=== PATIENT | female | born 1990 | race Caucasian/White ===

== ENCOUNTER 2023-02-21 18:49 | Emergency (ER) | payer OTHER, SELFPAY ==
--- NOTE | ~2023-02-21 | CT_ITS ---
EXAMINATION: CT ABDOMEN AND PELVIS WITHOUT CONTRAST CLINICAL INFORMATION: Right-sided flank pain COMPARISON: 04/03/2020 TECHNIQUE: Multidetector volumetric imaging was performed from the superior aspect of the liver through the pubic symphysis. Sagittal and coronal reformatted images were obtained on the technologist's workstation. This CT examination was performed using dose optimization techniques as appropriate, variously including the following: *Automated exposure control *Adjustment of mA and/or kV according to patient size (this includes techniques or standardized protocols for targeted exams where dose is matched to indication/reason for exam; i.e. extremities or head) *Use of iterative reconstruction technique DLP: 384 mGy-cm FINDINGS: LUNG BASES: The visualized lung bases are unremarkable. LIVER, GALLBLADDER, AND BILIARY TREE: The liver is normal in size, shape, and attenuation. No focal hepatic lesion or biliary ductal dilatation is present. The gallbladder is unremarkable with no evidence of radiopaque gallstones, gallbladder wall thickening, or obvious pericholecystic inflammatory changes. PANCREAS: Unremarkable. SPLEEN: Unremarkable. ADRENAL GLANDS: Unremarkable. KIDNEYS AND URETERS: Multiple bilateral relatively small punctate 2 to 4 mm calculi bilaterally. On the right, there is hydronephrosis which is relatively marked down to the level of the distal ureter where there is a obstructing 2 mm calculus. No additional ureteral stone. Left-sided system decompressed. No perinephric collection. Right kidney is enlarged. BLADDER: Unremarkable. GASTROINTESTINAL TRACT: The small and large bowel are unremarkable. The appendix is unremarkable. ABDOMINAL WALL: No significant hernia is appreciated. LYMPH NODES: Normal. VASCULAR: Unremarkable. PELVIC VISCERA: Cholecystectomy fluid which is likely physiologic. Air within the vaginal fornix presumably iatrogenic. OSSEOUS STRUCTURES: Unremarkable. CT/CT abdomen pelvis wo IV con IMPRESSION: Obstructing 2 mm right distal ureteral calculus. Fleischner guidelines were followed.
[2023-02-21 19:43] VITALS: BP 139/80; PULSE 74; RESP 18; TEMP 36.9; O2SAT 99; BMI 23.8
--- NOTE | 2023-02-21 19:43 | ED.GENADULT ---
HPI - General Adult General Chief complaint: Abdominal Pain Stated complaint: Flank pain/vomiting Related Data Allergies Allergy/AdvReac Type Severity Reaction Status Date / Time Sulfa (Sulfonamide Allergy Intermediate UNKNOWN Unverified 06/25/20 19:41 Antibiotics) [SULFA (SULFONAMIDE ANTIBIOTICS)] Physical Exam ED Vital Signs: Vital Signs - 24 hr 02/21/23 19:43 Temperature 98.4 F Pulse Rate 74 Respiratory Rate 18 Blood Pressure 139/80 Pulse Oximetry 99 Oxygen Delivery Method Room Air BMI result Body Mass Index 23.8 Course Course Course Narrative: This is an RME: Additional HPI, ROS, PE not included below will be deferred to primary provider. [id number], hx of kidney stones, Factor II blood disorder, and depression, presenting to the emergency department with a complaint of right sided flank pain, nausea, vomiting, since last night. Pain starts in the right flank and radiates to the right after. +Chills, no known fevers. Patient has been unable to urinate since noon today. Unable to tolerate PO due to nausea and vomiting. Plan: labs, CT abd/pelvis w/o contrast, UA, zofran 4mg ODT, and tylenol PO ordered
[2023-02-21] MEDS: Ondansetron ODT 4 MG TAB.RAPDIS TRANSLINGU (19:51)
[2023-02-21] MEDS: Acetaminophen 325 MG TABLET 975 MG PO (19:51)
[2023-02-21 20:34] LABS: MANUAL DIFF FLAG NO
[2023-02-21 20:39] LABS: Appearance Urine Turbid; Color Urine Yellow; Glucose Urine UA Negative (Negative); Leukocyte Esterase Urine Moderate (2+) (Negative); Nitrite Urine Negative (Negative); PH 5.5 (5.0-9.0); Specific Gravity - Urine >= 1.030 (1.005-1.025); UMIC TRIGGER UACC YES; Urine Blood Small (1+) (Negative); Urine Ketones 15 mg/dL (Negative); Urine Protein Trace mg/dL (Neg-Trace)
[2023-02-21 20:41] LABS: Basophils Absolute Auto 0.1 X10*3/uL (0.0-0.2); Basophils Percent Auto 0.4 % (0-2); Eosinophils Absolute Auto 0.1 X10*3/uL (0.0-0.4); Eosinophils Percent Auto 0.7 % (0-4); Hematocrit 44.2 % (37.0-47.0); Hemoglobin 14.7 g/dl (12.0-16.0); Imm Gran Abs Auto 0.05 X10*3/uL (0.00-0.03); Imm Gran Pct Auto 0.3 % (0.0-0.4); Lymphocytes Absolute Auto 1.3 X10*3/uL (1.2-4.9); Lymphocytes Percent Auto 8.4 % (20-40); Mean Corpuscular HGB Conc 33.3 g/dl (31.0-35.0); Mean Corpuscular Hemoglobin 30.6 pg (27.0-33.0); Mean Corpuscular Volume 91.9 fL (80.0-98.0); Mean Platelet Volume 10.5 fL (9.4-12.3); Monocytes Absolute Auto 0.6 X10*3/uL (0.1-1.2); Monocytes Percent Auto 3.7 % (2-11); Neutrophils Absolute Auto 13.5 x10*3/uL (2.0-8.3); Neutrophils Percent Auto 86.5 % (45-73); Platelet Count 300 X10*3/uL (160-400); Red Blood Count 4.81 X10*6/uL (4.20-5.50); Red Cell Distribution Width 12.4 % (11.0-16.0); UPreg QC Valid YES; Urine Pregnancy NEGATIVE (NEGATIVE); White Blood Count 15.6 X10*3/uL (4.8-10.8)
[2023-02-21 20:52] LABS: Bacteria Urine 4+ (None Seen); RBC Urine >20 /HPF (0-2); Squamous Epithelial Cell Urine >20 /HPF (0-2); UACC Culture Trigger YES; WBC Urine 21-50 /HPF (0-5)
--- NOTE | 2023-02-21 20:52 | ED_ITS ---
HPI - Abdominal Pain General Chief Complaint: Abdominal Pain Stated Complaint: Flank pain/vomiting Time Seen by Provider: 02/21/23 20:40 Source: patient History of Present Illness HPI narrative: Patient with 2 days of right side abdominal pain radiating to right flank and right lower quadrant. Positive nausea and vomiting today. No fevers or chills. Similar pain in the past when she had a kidney stone. No other recent illnesses. She came to the emergency department today because she was unable to tolerate p.o. liquids the pain was getting worse. At times it is 10/10. Currently she rates it as moderate Related Data Previous Rx's Medication Instructions Recorded cefpodoxime 200 mg tablet 200 mg PO Q12H #14 tabs 02/21/23 ibuprofen 800 mg tablet 800 mg PO TID PRN pain #30 tabs 02/21/23 ondansetron 4 mg disintegrating 4 mg PO Q6H PRN nausea and 02/21/23 tablet vomiting #14 tabs oxycodone-acetaminophen 5 mg-325 1 tab PO TID PRN pain #10 tabs 02/21/23 mg tablet (Percocet) tamsulosin 0.4 mg capsule 0.4 mg PO DAILY #10 caps 02/21/23 Allergies Allergy/AdvReac Type Severity Reaction Status Date / Time Sulfa (Sulfonamide Allergy Intermediate UNKNOWN Verified 02/21/23 21:17 Antibiotics) [SULFA (SULFONAMIDE ANTIBIOTICS)] Review of Systems Comments: No fevers or chills or recent illness Comments: No chest pain Comments: No cough Gastrointestinal: Reports as per HPI Comments: No dysuria Comments: No skin changes PMFSH Social History Social History Use of substances other than those prescribed or required for medical reasons: No Advance Directives: No Advance Directives Information Provided: Yes Patient : No Physical Exam ED Vital Signs: Vital Signs - 24 hr 02/21/23 19:43 02/21/23 21:23 02/21/23 22:20 Temperature 98.4 F 98.0 F 97.7 F Pulse Rate 74 61 69 Respiratory Rate 18 16 12 Blood Pressure 139/80 112/75 91/63 Pulse Oximetry 99 98 99 Oxygen Delivery Method Room Air Room Air Room Air 02/21/23 22:41 Temperature Pulse Rate 70 Respiratory Rate Blood Pressure 106/67 Pulse Oximetry Oxygen Delivery Method BMI result Body Mass Index 23.8 Const Other: Awake and alert. No acute distress. Vital signs stable. Afebrile Resp Other: Clear and equal bilaterally Cardio Other: Regular rate rhythm without murmurs rubs or gallops GI Other: Soft, nondistended. Tenderness suprapubically, right lower, mid, and flank. Some guarding. No rebound. No referred pain. Skin Other: Warm pink and dry without rash Neuro Other: Grossly nonfocal neuro exam Medical Decision Making Medical Decision Making [facility] Narrative: Patient with abdominal pain and flank pain consistent with kidney stone. Other considerations would be pyelonephritis. Appendicitis. Gastroenteritis less likely. IV fluids IV Toradol IV ondansetron Await labs and CT scan. 20:55. White count is 15.6. Chemistries are pending. Urinalysis shows moderate leuk goes site esterase. Micro shows greater than 20 red cells and 21-50 white cells. Will treat with antibiotics. 21:56. CT scan shows obstructing 2 mm distal right ureteral calculus. Re-evaluation shows patient is feeling much better. She denies nausea. She states the pain is minimal. I discussed options of hospitalization in light of the above findings. Versus discharge home on p.o. meds if tolerated. Will attempt p.o. challenge 1st. If she tolerates this she would prefer discharge home. She understands to return immediately if she develops high fevers, nausea with inability to take her antibiotics or stay hydrated. Lab Data 02/21/23 20:26 02/21/23 20:26 Labs: Lab Results 02/21/23 02/21/23 02/21/23 Range/Units 20:26 20:26 20:26 WBC 15.6 H (4.8-10.8) X10*3/uL RBC 4.81 (4.20-5.50) X10*6/uL Hgb 14.7 (12.0-16.0) g/dl Hct 44.2 (37.0-47.0) % MCV 91.9 (80.0-98.0) fL MCH 30.6 (27.0-33.0) pg MCHC 33.3 (31.0-35.0) g/dl RDW 12.4 (11.0-16.0) % Plt Count 300 (160-400) X10*3/uL MPV 10.5 (9.4-12.3) fL Immature Gran % (Auto) 0.3 (0.0-0.4) % Neut % (Auto) 86.5 H (45-73) % Lymph % (Auto) 8.4 L (20-40) % [place] % (Auto) 3.7 (2-11) % Eos % (Auto) 0.7 (0-4) % Baso % (Auto) 0.4 (0-2) % Lymph # (Auto) 1.3 (1.2-4.9) X10*3/uL [place] # (Auto) 0.6 (0.1-1.2) X10*3/uL Eos # (Auto) 0.1 (0.0-0.4) X10*3/uL Baso # (Auto) 0.1 (0.0-0.2) X10*3/uL Abs Immat Gran (auto) 0.05 H (0.00-0.03) X10*3/uL Absolute Neuts (auto) 13.5 H (2.0-8.3) x10*3/uL Absolute Nucleated RBC 0.000 (0.0-0.012) X10*3/uL Nucleated RBC % (auto) 0.0 (0.0-0.2) /100WBC Sodium 140 (135-145) mmol/L Potassium 4.1 (3.3-5.1) mmol/L Chloride 106 (96-108) mmol/L Carbon Dioxide 24 (22-29) mmol/L Anion Gap 14 (12-20) BUN 11 (9-16) mg/dL Creatinine 0.84 (0.5-1.4) mg/dL Estim Creat Clear Calc 74.6 Estimated GFR > 60 Random Glucose 94 (60-115) mg/dL Lactic Acid (0.5-2.0) mmol/L Calcium 9.7 (8.4-10.2) mg/dL Magnesium 1.7 (1.6-2.6) mg/dL Total Bilirubin 0.8 (0.0-1.0) mg/dL Direct Bilirubin 0.2 (0.0-0.5) mg/dL AST 20 (5-31) U/L ALT 14 (0-31) U/L Alkaline Phosphatase 92 (39-117) U/L Total Protein 7.4 (6.5-8.0) g/dL Albumin 4.6 (3.5-5.0) g/dL Lipase 24 (8-78) U/L Beta HCG, Quant < 2 mIU/mL Urine Color Urine Appearance Urine pH (5.0-9.0) Ur Specific [place] (1.005-1.025) Urine Protein (Neg-Trace) mg/dL Urine Glucose (UA) (Negative) mg/dL Urine Ketones (Negative) mg/dL Urine Blood (Negative) Urine Nitrite (Negative) Ur Leukocyte Esterase (Negative) Urine RBC (0-2) /HPF Urine WBC (0-5) /HPF Ur Squamous Epith Cells (0-2) /HPF Urine Bacteria (None Seen) Hyaline Casts (0-2) /LPF Urine Yeast Urine Test (NEGATIVE) 02/21/23 02/21/23 02/21/23 Range/Units 20:26 20:26 21:14 WBC (4.8-10.8) X10*3/uL RBC (4.20-5.50) X10*6/uL Hgb (12.0-16.0) g/dl Hct (37.0-47.0) % MCV (80.0-98.0) fL MCH (27.0-33.0) pg MCHC (31.0-35.0) g/dl RDW (11.0-16.0) % Plt Count (160-400) X10*3/uL MPV (9.4-12.3) fL Immature Gran % (Auto) (0.0-0.4) % Neut % (Auto) (45-73) % Lymph % (Auto) (20-40) % [place] % (Auto) (2-11) % Eos % (Auto) (0-4) % Baso % (Auto) (0-2) % Lymph # (Auto) (1.2-4.9) X10*3/uL [place] # (Auto) (0.1-1.2) X10*3/uL Eos # (Auto) (0.0-0.4) X10*3/uL Baso # (Auto) (0.0-0.2) X10*3/uL Abs Immat Gran (auto) (0.00-0.03) X10*3/uL Absolute Neuts (auto) (2.0-8.3) x10*3/uL Absolute Nucleated RBC (0.0-0.012) X10*3/uL Nucleated RBC % (auto) (0.0-0.2) /100WBC Sodium (135-145) mmol/L Potassium (3.3-5.1) mmol/L Chloride (96-108) mmol/L Carbon Dioxide (22-29) mmol/L Anion Gap (12-20) BUN (9-16) mg/dL Creatinine (0.5-1.4) mg/dL Estim Creat Clear Calc Estimated GFR Random Glucose (60-115) mg/dL Lactic Acid 0.7 (0.5-2.0) mmol/L Calcium (8.4-10.2) mg/dL Magnesium (1.6-2.6) mg/dL Total Bilirubin (0.0-1.0) mg/dL Direct Bilirubin (0.0-0.5) mg/dL AST (5-31) U/L ALT (0-31) U/L Alkaline Phosphatase (39-117) U/L Total Protein (6.5-8.0) g/dL Albumin (3.5-5.0) g/dL Lipase (8-78) U/L Beta HCG, Quant mIU/mL Urine Color Yellow Urine Appearance Turbid Urine pH 5.5 (5.0-9.0) Ur Specific [place] >= 1.030 H (1.005-1.025) Urine Protein Trace (Neg-Trace) mg/dL Urine Glucose (UA) Negative (Negative) mg/dL Urine Ketones 15 (Negative) mg/dL Urine Blood Small (1+) H (Negative) Urine Nitrite Negative (Negative) Ur Leukocyte Esterase Moderate (2+) H (Negative) Urine RBC >20 H (0-2) /HPF Urine WBC 21-50 H (0-5) /HPF Ur Squamous Epith Cells >20 (0-2) /HPF Urine Bacteria 4+ (None Seen) Hyaline Casts 6-10 (0-2) /LPF Urine Yeast Present Urine Test NEGATIVE (NEGATIVE) Medications Administered Discontinued Medications Generic Name Dose Route Start Last Admin Trade Name Freq PRN Reason Stop Dose Admin Acetaminophen 975 mg 02/21/23 19:48 02/21/23 19:51 Acetaminophen 325 Mg Tablet PO 02/21/23 19:49 975 mg ONCE ONE Administration Ceftriaxone Sodium 1 gm/ 50 mls @ 100 mls/hr 02/21/23 20:56 02/21/23 22:01 Sodium Chloride IV 02/21/23 21:25 Infused ONCE ONE Infusion Ketorolac Tromethamine 30 mg 02/21/23 20:50 02/21/23 21:18 Ketorolac Tromethamine 15 Mg/Ml Vial IVPUSH 02/21/23 20:51 30 mg ONCE ONE Administration Ondansetron HCl 4 mg 02/21/23 19:48 02/21/23 19:51 Ondansetron Odt 4 Mg Tab.Rapdis TRANSLINGU 02/21/23 19:49 4 mg ONCE ONE Administration Ondansetron HCl 4 mg 02/21/23 20:50 02/21/23 21:18 Ondansetron Hcl 4 Mg/2 Ml Vial IVPUSH 02/21/23 20:51 4 mg ONCE ONE Administration Discharge Plan Discharge Clinical Impression: Calculus of kidney, Pyelonephritis Patient Disposition: Home, Self-Care Instructions: Kidney Stones (ED), Kidney Infection (ED) Additional Instructions: Medications as directed. Tamsulosin is a medicine to help a kidney stone pass Prescriptions: New cefpodoxime 200 mg tablet 200 mg PO Q12H Qty: 14 0RF Rx Instructions: must administer with a meal/food ondansetron 4 mg tablet,disintegrating 4 mg PO Q6H PRN (Reason: nausea and vomiting) Qty: 14 0RF oxycodone-acetaminophen [Percocet] 5-325 mg tablet 1 tab PO TID PRN (Reason: pain) Qty: 10 0RF Rx Instructions: Partial Fill upon patient request. ibuprofen 800 mg tablet 800 mg PO TID PRN (Reason: pain) Qty: 30 0RF tamsulosin 0.4 mg capsule 0.4 mg PO DAILY Qty: 10 0RF Interventions: ED Discharge Assessment Last Done: 02/21/23 22:46 Discharge Date/Time: 02/21/23 22:47
--- NOTE | 2023-02-21 20:55 | PC.NURSE ---
this rn assumed care of pt @ 2039. pt currently in CT for scan. awaiting return to ed room 13
[2023-02-21 21:00] LABS: Alanine Aminotransferase 14 U/L (0-31); Albumin Level 4.6 g/dL (3.5-5.0); Alkaline Phosphatase 92 U/L (39-117); Anion Gap 14 (12-20); Aspartate Amino Transferase 20 U/L (5-31); Bilirubin Direct 0.2 mg/dL (0.0-0.5); Bilirubin Total 0.8 mg/dL (0.0-1.0); Blood Urea Nitrogen 11 mg/dL (9-16); Calcium 9.7 mg/dL (8.4-10.2); Carbon Dioxide 24 mmol/L (22-29); Chloride 106 mmol/L (96-108); Creatinine Clr Calc Pharmacy 74.6; Estimated Glomerular Filt Rate > 60; Glucose Random 94 mg/dL (60-115); Lipase 24 U/L (8-78); Magnesium 1.7 mg/dL (1.6-2.6); Potassium 4.1 mmol/L (3.3-5.1); Sodium 140 mmol/L (135-145); Total Protein 7.4 g/dL (6.5-8.0)
[2023-02-21 21:07] LABS: HCG Quantitative < 2 mIU/mL
[2023-02-21] MEDS: ondansetron HCL 4 MG/2 ML VIAL IVPUSH (21:18)
[2023-02-21] MEDS: Ketorolac Tromethamine 15 MG/ML VIAL 30 MG IVPUSH (21:18)
[2023-02-21] MEDS: cefTRIAXone sodium 1 GM in 0.9 % Sodium Chloride 50 ML IV (21:18)
[2023-02-21 21:23] VITALS: BP 112/75; PULSE 61; RESP 16; TEMP 36.7; O2SAT 98
[2023-02-21 21:36] LABS: Lactic Acid 0.7 mmol/L (0.5-2.0)
[2023-02-21 22:20] VITALS: BP 91/63; PULSE 69; RESP 12; TEMP 36.5; O2SAT 99
[2023-02-21 22:41] VITALS: BP 106/67; PULSE 70
--- NOTE | 2023-02-21 22:45 | PC.NURSE ---
vss. skin pwd. pt ambulatory at discharge. iv removed at discharge. pt provided with discharge packet. pt verbalized understanding of discharge plan
== END 2023-02-21 22:47 | disposition home or self-care (01) ==
PROVIDERS: Physician Assistant Medical; Emergency Provider Emergency Medicine; PCP Family Medicine
DX: N13.2 Hydronephrosis with renal and ureteral calculous obstruction (principal); N12 Tubulo-interstitial nephritis, not specified as acute or chronic; R10.31 Right lower quadrant pain; D72.829 Elevated white blood cell count, unspecified; Z79.899 Other long term (current) drug therapy
CPT/HCPCS: 36415; 74176; 80048; 80076; 81001; 81025; 83605; 83690; 83735; 84702; 85025; 87040; 87086; 96365; 96375; 99284; J0696; J1885; J2405

== ENCOUNTER 2023-03-12 14:45 | Emergency (ER) | payer OTHER, SELFPAY ==
--- NOTE | ~2023-03-12 | CT_ITS ---
EXAMINATION: CT ABDOMEN AND PELVIS WITHOUT CONTRAST CLINICAL INFORMATION: Left flank pain, passed medical history of kidney stones. COMPARISON: CT abdomen and pelvis 02/21/2023. TECHNIQUE: Multidetector volumetric imaging was performed from the superior aspect of the liver through the pubic symphysis. Sagittal and coronal reformatted images were obtained on the technologist's workstation. This CT examination was performed using dose optimization techniques as appropriate, variously including the following: *Automated exposure control *Adjustment of mA and/or kV according to patient size (this includes techniques or standardized protocols for targeted exams where dose is matched to indication/reason for exam; i.e. extremities or head) *Use of iterative reconstruction technique DLP: 547 mGy-cm FINDINGS: LUNG BASES: The visualized lung bases are unremarkable. LIVER, GALLBLADDER, AND BILIARY TREE: The liver is normal in size, shape, and attenuation. No focal hepatic lesion or biliary ductal dilatation is present. The gallbladder is unremarkable with no evidence of radiopaque gallstones, gallbladder wall thickening, or obvious pericholecystic inflammatory changes. PANCREAS: No discrete pancreatic mass. No ductal dilatation. No focal parenchymal atrophy. SPLEEN: Normal. ADRENAL GLANDS: No adrenal mass. KIDNEYS AND URETERS: There are 3 punctate nonobstructing calculi in the right kidney ranging 7.6-10.2 cm from posterolateral skin surface. There is a single punctate nonobstructing calculus in the left kidney measuring 8.9 cm from the posterolateral skin surface. There is mild hydroureteronephrosis related to a 2 mm calculus approximately 1 cm above the left ureterovesicular junction. This calculus was previously in the left lower pole. The previously seen right hydroureteronephrosis and distal right ureteral calculus have resolved. BLADDER: No bladder calculus. GASTROINTESTINAL TRACT: The small and large bowel are unremarkable. The appendix is unremarkable. ABDOMINAL WALL: No significant hernia is appreciated. LYMPH NODES: Normal. VASCULAR: Unremarkable. PELVIC VISCERA: The uterus is retroverted. No ovarian lesion seen. Trace pelvic fluid likely physiologic. OSSEOUS STRUCTURES: Mild degenerative disc disease at L5-S1. CT/CT abdomen pelvis wo IV con IMPRESSION: New mild left hydroureteronephrosis due to a 2 mm calculus about 1 cm above the ureterovesicular junction. Resolution of previously seen distal right ureteral calculus and hydronephrosis. Nonobstructing bilateral renal calculi as above appear Fleischner guidelines were followed.
--- NOTE | 2023-03-12 15:34 | ED_ITS ---
HPI - General Adult General Chief complaint: Nausea/Vomiting/Diarrhea Stated complaint: L flank pain/Vomiting Time Seen by Provider: 03/12/23 17:29 Related Data Previous Rx's Medication Instructions Recorded cefpodoxime 200 mg tablet 200 mg PO Q12H #14 tabs 02/21/23 ibuprofen 800 mg tablet 800 mg PO TID PRN pain #30 tabs 02/21/23 ondansetron 4 mg disintegrating 4 mg PO Q6H PRN nausea and 02/21/23 tablet vomiting #14 tabs oxycodone-acetaminophen 5 mg-325 1 tab PO TID PRN pain #10 tabs 02/21/23 mg tablet (Percocet) tamsulosin 0.4 mg capsule 0.4 mg PO DAILY #10 caps 02/21/23 ketorolac 10 mg tablet 10 mg PO TID PRN pain #10 tabs 03/12/23 tamsulosin 0.4 mg capsule (Flomax) 0.4 mg PO DAILY #10 caps 03/12/23 Allergies Allergy/AdvReac Type Severity Reaction Status Date / Time Sulfa (Sulfonamide Allergy Intermediate UNKNOWN Verified 02/21/23 21:17 Antibiotics) [SULFA (SULFONAMIDE ANTIBIOTICS)] [facility] Social History Social History Alcohol intake: never Smoked in Last 30 Days: No Use of substances other than those prescribed or required for medical reasons: No Advance Directives: No Advance Directives Information Provided: No Physical Exam ED Vital Signs: Vital Signs - 24 hr 03/12/23 17:07 Pulse Rate 70 Blood Pressure 105/62 Pulse Oximetry 97 Oxygen Delivery Method Room Air BMI result Body Mass Index 22.9 Course Course Course Narrative: RME: 32 yold female presents to the ED for left flank pain. patient had recent kidney stones and UTI. patient admits to vomitting. labs and CT scan ordered Medications Administered Discontinued Medications Generic Name Dose Route Start Last Admin Trade Name Freq PRN Reason Stop Dose Admin Ketorolac Tromethamine 60 mg 03/12/23 18:57 03/12/23 19:01 Ketorolac Tromethamine 60 Mg/2 Ml Vial IM 03/12/23 18:58 60 mg ONCE ONE Administration Medical Decision Making Lab Data 03/12/23 15:49 03/12/23 15:49 Labs: Lab Results 03/12/23 03/12/23 03/12/23 Range/Units 15:49 15:49 15:53 WBC 13.5 H (4.8-10.8) X10*3/uL RBC 4.50 (4.20-5.50) X10*6/uL Hgb 13.8 (12.0-16.0) g/dl Hct 41.0 (37.0-47.0) % MCV 91.1 (80.0-98.0) fL MCH 30.7 (27.0-33.0) pg MCHC 33.7 (31.0-35.0) g/dl RDW 12.7 (11.0-16.0) % Plt Count 315 (160-400) X10*3/uL MPV 10.3 (9.4-12.3) fL Immature Gran % (Auto) 0.2 (0.0-0.4) % Neut % (Auto) 86.4 H (45-73) % Lymph % (Auto) 8.4 L (20-40) % [place] % (Auto) 4.0 (2-11) % Eos % (Auto) 0.6 (0-4) % Baso % (Auto) 0.4 (0-2) % Lymph # (Auto) 1.1 L (1.2-4.9) X10*3/uL [place] # (Auto) 0.5 (0.1-1.2) X10*3/uL Eos # (Auto) 0.1 (0.0-0.4) X10*3/uL Baso # (Auto) 0.1 (0.0-0.2) X10*3/uL Abs Immat Gran (auto) 0.03 (0.00-0.03) X10*3/uL Absolute Neuts (auto) 11.7 H (2.0-8.3) x10*3/uL Absolute Nucleated RBC 0.000 (0.0-0.012) X10*3/uL Nucleated RBC % (auto) 0.0 (0.0-0.2) /100WBC Sodium 141 (135-145) mmol/L Potassium 3.9 (3.3-5.1) mmol/L Chloride 107 (96-108) mmol/L Carbon Dioxide 24 (22-29) mmol/L Anion Gap 14 (12-20) BUN 11 (9-16) mg/dL Creatinine 0.79 (0.5-1.4) mg/dL Estim Creat Clear Calc 79.3 Estimated GFR > 60 Random Glucose 94 (60-115) mg/dL Calcium 9.3 (8.4-10.2) mg/dL Total Bilirubin 0.8 (0.0-1.0) mg/dL AST 18 (5-31) U/L ALT 14 (0-31) U/L Alkaline Phosphatase 104 (39-117) U/L Total Protein 7.1 (6.5-8.0) g/dL Albumin 4.4 (3.5-5.0) g/dL Beta HCG, Quant < 2 mIU/mL Urine Color Yellow Urine Appearance Clear Urine pH 5.5 (5.0-9.0) Ur Specific [place] 1.010 (1.005-1.025) Urine Protein Negative (Neg-Trace) mg/dL Urine Glucose (UA) Negative (Negative) mg/dL Urine Ketones Negative (Negative) mg/dL Urine Blood Large (3+) H (Negative) Urine Nitrite Negative (Negative) Ur Leukocyte Esterase Negative (Negative) Urine RBC 6-10 H (0-2) /HPF Urine WBC 0-5 (0-5) /HPF Ur Squamous Epith Cells 3-5 (0-2) /HPF Urine Bacteria None Seen (None Seen) Hyaline Casts 3-5 (0-2) /LPF Discharge Plan Discharge Clinical Impression: Ureterolithiasis Patient Disposition: Home, Self-Care Instructions: Ureteral Stones (ED) Additional Instructions: Please follow-up with your primary care physician tomorrow. If you have any worsening or new symptoms, please return to the emergency room or call 911 Prescriptions: New ketorolac 10 mg tablet 10 mg PO TID PRN (Reason: pain) Qty: 10 0RF tamsulosin [Flomax] 0.4 mg capsule 0.4 mg PO DAILY Qty: 10 0RF No Action cefpodoxime 200 mg tablet 200 mg PO Q12H Qty: 14 0RF Rx Instructions: must administer with a meal/food ondansetron 4 mg tablet,disintegrating 4 mg PO Q6H PRN (Reason: nausea and vomiting) Qty: 14 0RF oxycodone-acetaminophen [Percocet] 5-325 mg tablet 1 tab PO TID PRN (Reason: pain) Qty: 10 0RF Rx Instructions: Partial Fill upon patient request. ibuprofen 800 mg tablet 800 mg PO TID PRN (Reason: pain) Qty: 30 0RF tamsulosin 0.4 mg capsule 0.4 mg PO DAILY Qty: 10 0RF Interventions: ED Discharge Assessment Last Done: 03/12/23 21:05 Discharge Date/Time: 03/12/23 21:06
[2023-03-12 15:35] VITALS: BP 110/66; PULSE 74; RESP 16; TEMP 36.8; O2SAT 97; BMI 22.9
[2023-03-12 15:52] LABS: MANUAL DIFF FLAG NO
[2023-03-12 16:04] LABS: Basophils Absolute Auto 0.1 X10*3/uL (0.0-0.2); Basophils Percent Auto 0.4 % (0-2); Eosinophils Absolute Auto 0.1 X10*3/uL (0.0-0.4); Eosinophils Percent Auto 0.6 % (0-4); Hemoglobin 13.8 g/dl (12.0-16.0); Imm Gran Abs Auto 0.03 X10*3/uL (0.00-0.03); Imm Gran Pct Auto 0.2 % (0.0-0.4); Lymphocytes Absolute Auto 1.1 X10*3/uL (1.2-4.9); Lymphocytes Percent Auto 8.4 % (20-40); Mean Corpuscular HGB Conc 33.7 g/dl (31.0-35.0); Mean Corpuscular Hemoglobin 30.7 pg (27.0-33.0); Mean Corpuscular Volume 91.1 fL (80.0-98.0); Mean Platelet Volume 10.3 fL (9.4-12.3); Monocytes Absolute Auto 0.5 X10*3/uL (0.1-1.2); Neutrophils Absolute Auto 11.7 x10*3/uL (2.0-8.3); Neutrophils Percent Auto 86.4 % (45-73); Platelet Count 315 X10*3/uL (160-400); Red Cell Distribution Width 12.7 % (11.0-16.0); White Blood Count 13.5 X10*3/uL (4.8-10.8)
[2023-03-12 16:04] LABS: Appearance Urine Clear; Color Urine Yellow; Glucose Urine UA Negative (Negative); Leukocyte Esterase Urine Negative (Negative); Nitrite Urine Negative (Negative); PH 5.5 (5.0-9.0); UMIC TRIGGER UACC YES; Urine Blood Large (3+) (Negative); Urine Ketones Negative (Negative); Urine Protein Negative (Neg-Trace)
[2023-03-12 16:09] LABS: Bacteria Urine None Seen (None Seen); WBC Urine 0-5 /HPF (0-5)
[2023-03-12 16:23] LABS: Alanine Aminotransferase 14 U/L (0-31); Albumin Level 4.4 g/dL (3.5-5.0); Alkaline Phosphatase 104 U/L (39-117); Anion Gap 14 (12-20); Aspartate Amino Transferase 18 U/L (5-31); Bilirubin Total 0.8 mg/dL (0.0-1.0); Blood Urea Nitrogen 11 mg/dL (9-16); Calcium 9.3 mg/dL (8.4-10.2); Carbon Dioxide 24 mmol/L (22-29); Chloride 107 mmol/L (96-108); Creatinine Clr Calc Pharmacy 79.3; Estimated Glomerular Filt Rate > 60; Glucose Random 94 mg/dL (60-115); HCG Quantitative < 2 mIU/mL; Potassium 3.9 mmol/L (3.3-5.1); Sodium 141 mmol/L (135-145); Total Protein 7.1 g/dL (6.5-8.0)
[2023-03-12 17:07] VITALS: BP 105/62; PULSE 70; O2SAT 97
--- NOTE | 2023-03-12 17:11 | PC.NURSE ---
pt aox4, reporting left sided flank pain and associated N/V since this morning. was treated here for uti a few weeks ago. vitals stable, labs drawn in triage. call zaragoza within reach, will ctm
[2023-03-12] MEDS: Ketorolac Tromethamine 60 MG/2 ML VIAL IM (19:01)
== END 2023-03-12 21:06 | disposition home or self-care (01) ==
PROVIDERS: Physician Assistant; Emergency Provider Emergency Medicine; PCP Family Medicine
DX: N20.1 Calculus of ureter (principal); R11.2 Nausea with vomiting, unspecified; Z79.899 Other long term (current) drug therapy
CPT/HCPCS: 36415; 74176; 80053; 81001; 81003; 84702; 85025; 96372; 99284; J1885

== ENCOUNTER 2023-03-21 11:47 | Emergency (ER) | payer OTHER, SELFPAY ==
--- NOTE | ~2023-03-21 | US_ITS ---
EXAMINATION: US RETROPERITONEAL LIMITED (RENAL ONLY) CLINICAL INFORMATION: Left flank pain radiating to left lower quadrant. COMPARISON: None available. TECHNIQUE: Routine grayscale imaging of both kidneys was performed. FINDINGS: RIGHT KIDNEY: 10.3 x 4.4 x 4.7 cm (SAG x AP x TRV). The kidney is normal in size, contour, and echogenicity. Renal cortical thickness is normal. No calculi or focal parenchymal lesions. No hydronephrosis. Punctate echogenic calcification seen without any twinkle artifact. It measures 0.2 x 0.2 cm. LEFT KIDNEY: 13.7 x 5.3 x 6.0 cm (SAG x AP x TRV). The kidney is normal in size, contour, and echogenicity. Renal cortical thickness is normal. No calculi or focal parenchymal lesions. A few echogenic calcifications are seen in the midpole measuring 0.6 x 0.3 x 0.5 cm and mid to/lower pole measuring 0.7 x 0.5 x 0.5 cm. There is mild hydronephrosis.. US/US renal BI IMPRESSION: Bilateral punctate echogenic renal calcifications but no echogenic stones. Mild hydronephrosis left kidney.
--- NOTE | 2023-03-21 12:14 | ED_ITS ---
HPI - Abdominal Pain General Chief Complaint: Urogenital-Female Stated Complaint: L Side Pain ? Kidney Stone Time Seen by Provider: 03/21/23 13:48 Source: patient Mode of arrival: ambulatory Limitations: no limitations History of Present Illness HPI narrative: left sided flank pain since last night. patient feels that she has buring with urination since this morning. Patient had 100.4 at the PCP. Patient has had 2 recent stones one on the left one on the right. Patient has not seen a urologist for her stones or infection. Patient had nausea this morning. MD elicited complaint: flank pain Onset (ago): week(s) Pain Consistency: intermittent Severity: mild Related Data Previous Rx's Medication Instructions Recorded cefpodoxime 200 mg tablet 200 mg PO Q12H #14 tabs 02/21/23 ibuprofen 800 mg tablet 800 mg PO TID PRN pain #30 tabs 02/21/23 ondansetron 4 mg disintegrating 4 mg PO Q6H PRN nausea and 02/21/23 tablet vomiting #14 tabs oxycodone-acetaminophen 5 mg-325 1 tab PO TID PRN pain #10 tabs 02/21/23 mg tablet (Percocet) tamsulosin 0.4 mg capsule 0.4 mg PO DAILY #10 caps 02/21/23 ketorolac 10 mg tablet 10 mg PO TID PRN pain #10 tabs 03/12/23 tamsulosin 0.4 mg capsule (Flomax) 0.4 mg PO DAILY #10 caps 03/12/23 cefpodoxime 100 mg tablet 100 mg PO BID #14 tabs 03/21/23 naproxen 500 mg tablet (Naprosyn) 500 mg PO BID #20 tabs 03/21/23 tamsulosin 0.4 mg capsule (Flomax) 0.4 mg PO BEDTIME #20 caps 03/21/23 Allergies Allergy/AdvReac Type Severity Reaction Status Date / Time Sulfa (Sulfonamide Allergy Intermediate UNKNOWN Verified 03/21/23 12:14 Antibiotics) [SULFA (SULFONAMIDE ANTIBIOTICS)] Review of Systems Review of Systems Yes all other systems are reviewed and are negative Comments: left flank pain PMFSH Social History Social History Alcohol intake: never Advance Directives: No Physical Exam ED Vital Signs: Vital Signs - 24 hr 03/21/23 12:21 03/21/23 14:08 Temperature 97.9 F 98.4 F Pulse Rate 66 69 Respiratory Rate 16 16 Blood Pressure 127/79 116/76 Pulse Oximetry 99 99 Oxygen Delivery Method Room Air Room Air BMI result Body Mass Index 24.8 Course Course Course Narrative: RME: 32yo F w/PMHx renal stones c/o L flank pain radiating to LLQ x last night with fever at PCPs office [employer]. Admits to nausea. was seen in our ED on 03/12 for similar sx Labs, UA, Renal US, IVF ordered Full HPI, ROS and PE to be performed by primary ED provider. Reevaluation(s) Reevaluation #1: patient with hydronephrosis on US with small amount of WBC in her urine. I started Ceftriaxone and will discharge her on vantin, naprosyn, flomax with follow up with Dr. Barrera Time: 15:22 Medical Decision Making Differential Diagnosis Differential Diagnoses: The differential diagnosis associated with the presentation includes (renal colic, pyelonephritis, hydronephrosis) Admission/Observation Consideration of admission/observation: Escalation of care including admission/observation considered (In this patient with multiple stones and now mild hydronephrosis admission was considered) Consult Healthcare Provider Management of the patient was discussed with: Income Tax Manager (Dr. Barrera urologist) Lab Data MDM Lab Attestation statement: I reviewed the patient's lab results. 03/21/23 12:54 03/21/23 12:54 Labs: Lab Results 03/21/23 03/21/23 03/21/23 Range/Units 12:54 12:54 12:54 WBC 7.7 (4.8-10.8) X10*3/uL RBC 4.51 (4.20-5.50) X10*6/uL Hgb 13.8 (12.0-16.0) g/dl Hct 42.0 (37.0-47.0) % MCV 93.1 (80.0-98.0) fL MCH 30.6 (27.0-33.0) pg MCHC 32.9 (31.0-35.0) g/dl RDW 12.6 (11.0-16.0) % Plt Count 290 (160-400) X10*3/uL MPV 10.5 (9.4-12.3) fL Immature Gran % (Auto) 0.3 (0.0-0.4) % Neut % (Auto) 64.4 (45-73) % Lymph % (Auto) 27.1 (20-40) % [place] % (Auto) 5.2 (2-11) % Eos % (Auto) 2.2 (0-4) % Baso % (Auto) 0.8 (0-2) % Lymph # (Auto) 2.1 (1.2-4.9) X10*3/uL [place] # (Auto) 0.4 (0.1-1.2) X10*3/uL Eos # (Auto) 0.2 (0.0-0.4) X10*3/uL Baso # (Auto) 0.1 (0.0-0.2) X10*3/uL Abs Immat Gran (auto) 0.02 (0.00-0.03) X10*3/uL Absolute Neuts (auto) 5.0 (2.0-8.3) x10*3/uL Absolute Nucleated RBC 0.000 (0.0-0.012) X10*3/uL Nucleated RBC % (auto) 0.0 (0.0-0.2) /100WBC Sodium 141 (135-145) mmol/L Potassium 4.2 (3.3-5.1) mmol/L Chloride 108 (96-108) mmol/L Carbon Dioxide 26 (22-29) mmol/L Anion Gap 11 L (12-20) BUN 8 L (9-16) mg/dL Creatinine 0.76 (0.5-1.4) mg/dL Estim Creat Clear Calc 89.9 Estimated GFR > 60 Random Glucose 91 (60-115) mg/dL Calcium 9.3 (8.4-10.2) mg/dL Total Bilirubin 0.7 (0.0-1.0) mg/dL Direct Bilirubin 0.2 (0.0-0.5) mg/dL AST 16 (5-31) U/L ALT 13 (0-31) U/L Alkaline Phosphatase 84 (39-117) U/L Total Protein 7.2 (6.5-8.0) g/dL Albumin 4.4 (3.5-5.0) g/dL Lipase 380 H (8-78) U/L Urine Color Yellow Urine Appearance Clear Urine pH 6.5 (5.0-9.0) Ur Specific [place] 1.015 (1.005-1.025) Urine Protein Negative (Neg-Trace) mg/dL Urine Glucose (UA) Negative (Negative) mg/dL Urine Ketones Negative (Negative) mg/dL Urine Blood Trace H (Negative) Urine Nitrite Negative (Negative) Ur Leukocyte Esterase Moderate (2+) H (Negative) Urine RBC 6-10 H (0-2) /HPF Urine WBC 11-20 H (0-5) /HPF Ur Squamous Epith Cells 3-5 (0-2) /HPF Urine Bacteria Trace (None Seen) Hyaline Casts 0-2 (0-2) /LPF Independent Interpretation I performed an independent interpretation of an: Ultrasound (stones and hydronephrosis was seen) Radiology Impression Discussion of test interpretation with radiology: I have reviewed the radiologist's reading. External Record Review External record reviewed: Prior outpatient radiology Discharge Plan Discharge Clinical Impression: Urinary tract infection, Renal colic on left side, Hydronephrosis Patient Disposition: Home, Self-Care Instructions: Urinary Tract Infection in Women (ED), Renal Colic (ED), Hydronephrosis (ED) Prescriptions: New cefpodoxime 100 mg tablet 100 mg PO BID Qty: 14 0RF Rx Instructions: must administer with a meal/food tamsulosin [Flomax] 0.4 mg capsule 0.4 mg PO BEDTIME Qty: 20 0RF naproxen [Naprosyn] 500 mg tablet 500 mg PO BID Qty: 20 0RF No Action cefpodoxime 200 mg tablet 200 mg PO Q12H Qty: 14 0RF Rx Instructions: must administer with a meal/food ondansetron 4 mg tablet,disintegrating 4 mg PO Q6H PRN (Reason: nausea and vomiting) Qty: 14 0RF oxycodone-acetaminophen [Percocet] 5-325 mg tablet 1 tab PO TID PRN (Reason: pain) Qty: 10 0RF Rx Instructions: Partial Fill upon patient request. ibuprofen 800 mg tablet 800 mg PO TID PRN (Reason: pain) Qty: 30 0RF tamsulosin 0.4 mg capsule 0.4 mg PO DAILY Qty: 10 0RF ketorolac 10 mg tablet 10 mg PO TID PRN (Reason: pain) Qty: 10 0RF tamsulosin [Flomax] 0.4 mg capsule 0.4 mg PO DAILY Qty: 10 0RF Referrals: Guanaco aBrrera MD [Physician] - 3 days
[2023-03-21 12:21] VITALS: BP 127/79; PULSE 66; RESP 16; TEMP 36.6; O2SAT 99; BMI 24.8
[2023-03-21 13:01] LABS: MANUAL DIFF FLAG NO
[2023-03-21 13:05] LABS: Appearance Urine Clear; Basophils Absolute Auto 0.1 X10*3/uL (0.0-0.2); Basophils Percent Auto 0.8 % (0-2); Color Urine Yellow; Eosinophils Absolute Auto 0.2 X10*3/uL (0.0-0.4); Eosinophils Percent Auto 2.2 % (0-4); Glucose Urine UA Negative (Negative); Hemoglobin 13.8 g/dl (12.0-16.0); Imm Gran Abs Auto 0.02 X10*3/uL (0.00-0.03); Imm Gran Pct Auto 0.3 % (0.0-0.4); Leukocyte Esterase Urine Moderate (2+) (Negative); Lymphocytes Absolute Auto 2.1 X10*3/uL (1.2-4.9); Lymphocytes Percent Auto 27.1 % (20-40); Mean Corpuscular HGB Conc 32.9 g/dl (31.0-35.0); Mean Corpuscular Hemoglobin 30.6 pg (27.0-33.0); Mean Corpuscular Volume 93.1 fL (80.0-98.0); Mean Platelet Volume 10.5 fL (9.4-12.3); Monocytes Absolute Auto 0.4 X10*3/uL (0.1-1.2); Monocytes Percent Auto 5.2 % (2-11); Neutrophils Percent Auto 64.4 % (45-73); Nitrite Urine Negative (Negative); PH 6.5 (5.0-9.0); Platelet Count 290 X10*3/uL (160-400); Red Blood Count 4.51 X10*6/uL (4.20-5.50); Red Cell Distribution Width 12.6 % (11.0-16.0); Specific Gravity - Urine 1.015 (1.005-1.025); UMIC TRIGGER UACC YES; Urine Blood Trace (Negative); Urine Ketones Negative (Negative); Urine Protein Negative (Neg-Trace); White Blood Count 7.7 X10*3/uL (4.8-10.8)
[2023-03-21 13:07] LABS: Bacteria Urine Trace (None Seen); Hyaline Casts Urine 0-2 /LPF (0-2); UACC Culture Trigger YES
[2023-03-21 13:33] LABS: Alanine Aminotransferase 13 U/L (0-31); Albumin Level 4.4 g/dL (3.5-5.0); Alkaline Phosphatase 84 U/L (39-117); Anion Gap 11 (12-20); Aspartate Amino Transferase 16 U/L (5-31); Bilirubin Direct 0.2 mg/dL (0.0-0.5); Blood Urea Nitrogen 8 mg/dL (9-16); Calcium 9.3 mg/dL (8.4-10.2); Carbon Dioxide 26 mmol/L (22-29); Chloride 108 mmol/L (96-108); Creatinine Clr Calc Pharmacy 89.9; Estimated Glomerular Filt Rate > 60; Glucose Random 91 mg/dL (60-115); Potassium 4.2 mmol/L (3.3-5.1); Sodium 141 mmol/L (135-145); Total Protein 7.2 g/dL (6.5-8.0)
[2023-03-21 13:47] LABS: Bilirubin Total 0.7 mg/dL (0.0-1.0); Lipase 380 U/L (8-78)
[2023-03-21 14:08] VITALS: BP 116/76; PULSE 69; RESP 16; TEMP 36.9; O2SAT 99
[2023-03-21] MEDS: 0.9 % Sodium Chloride 1,000 ML 999 ML IV (15:22)
[2023-03-21] MEDS: Ketorolac Tromethamine 30 MG/ML VIAL IVPUSH (15:23)
[2023-03-21] MEDS: cefTRIAXone sodium 1 GM in 0.9 % Sodium Chloride 50 ML IV (15:26)
[2023-03-21 15:47] VITALS: BP 111/50; PULSE 55; RESP 14; TEMP 36.8; O2SAT 99
[2023-03-21 16:23] VITALS: BP 115/65; PULSE 69; RESP 16; TEMP 36.7; O2SAT 100
== END 2023-03-21 16:34 | disposition home or self-care (01) ==
PROVIDERS: Physician Assistant; Emergency Provider Emergency Medicine; PCP Family Medicine
DX: N39.0 Urinary tract infection, site not specified (principal); N13.30 Unspecified hydronephrosis; N23 Unspecified renal colic; Z79.899 Other long term (current) drug therapy
CPT/HCPCS: 36415; 76775; 80048; 80076; 81001; 81003; 83690; 85025; 87086; 96361; 96374; 96375; 99284; 99285; J0696; J1885